=== PATIENT | male | born 1995 | race Hispanic/Latino ===

== ENCOUNTER 2018-03-25 03:11 | Inpatient (IN) | payer MEDICAID ==
[2018-03-25] MEDS ORDERED: Sodium Chloride 0.9% 1,000 ML IV STA ×2 (03:22→04:40)
--- NOTE | 2018-03-25 03:33 | ED PDOC ---
Arrival/HPI - General Chief Complaint: Substance Abuse Time Seen by Provider: 03/25/18 03:16 Historian: Patient, EMS, Police - History of Present Illness Narrative History of Present Illness (Text): 03/25/18 03:28 22 year old male, with no significant past medical history, presents to the emergency department for evaluation, status post heroin overdose. Patient was found apneic, unresponsive, and cyanotic. EMS administered Narcan and began chest compressions. Patient was successfully revived. In the emergency department, patient states he feels better but is having chest pain. Patient describes it as chest pressure. Patient denies any fevers, headache, dizziness, abdominal pain, nausea, vomiting, diarrhea, back pain, neck pain, urinary/bowel changes, or any other complaint. Time/Duration: Prior to Arrival Symptom Onset: Sudden Symptom Course: Improving Quality: Pressure (chest pressure) Context: Home Past Medical History - Provider Review Nursing Documentation Reviewed: Yes - Psychiatric Hx Substance Use: Yes Family/Social History - Physician Review Nursing Documentation Reviewed: Yes Family/Social History: No Known Family HX Smoking Status: Current Some Days Smoker Hx Alcohol Use: Yes Frequency of alcohol use: Few days per week Hx Substance Use: Yes Substance used: Heroin Allergies/Home Meds Allergies/Adverse Reactions: Allergies No Known Allergies Allergy (Verified 03/25/18 03:13) Home Medications: Home Meds Medication Instructions Recorded Confirmed RX: No Known Home Med 03/25/18 03/25/18 Review of Systems - Physician Review All systems were reviewed & negative as marked: Yes - Review of Systems Constitutional: absent: Fevers Cardiovascular: Chest Pain Gastrointestinal: absent: Abdominal Pain, Diarrhea, Nausea, Vomiting Genitourinary Male: absent: Urinary Output Changes Musculoskeletal: absent: Back Pain, Neck Pain Neurological: absent: Headache, Dizziness Physical Exam - Physical Exam Narrative Physical Exam (Text): 03/25/18 03:41 Gen: VS reviewed, alert, well developed, well nourished, nontoxic, mild distress. ENT: normal pharynx. Eye: EOMI, PERRL. Neck: no JVD, supple, no adenopathy. CV: tachycardic, regular rhythm, no rubs, no murmur, no gallops, S1, S2, pulses equal and strong. Pulm: faint coarse breath sounds, no wheeze, no rhonchi, no rales. Abd: soft, nontender, no guarding, no rebound, no rigidity, normal bowel sounds. Ext: no edema. Skin: good color, no rash, no cyanosis. Psych: responds appropriately to questions, normal affect. Neuro: oriented x 3, CN2-12 intact grossly, motor intact, sensation intact. Medical Decision Making ED Course and Treatment: 03/25/18 03:37 Impression: 22 year old male presents with chest pain, for evaluation status post heroin overdose. Plan: -- EKG -- Labs -- Chest X-ray -- O2 Nasal Cannula -- Reassess and disposition Progress Notes: 03/25/18 04:41 admit accepted by hospitalist via . patient to be admitted for heroin overdose (injects in right AC), received narcan and had chest compression prir to arrival. cxr appears consistent with aspiration pneumonia and patient empirically started on iv abx. patient to be screened for ICU admission. 03/25/18 04:46 - Critical Care Critical Care Minutes: 30 minutes - RAD Interpretation Radiology Orders: 03/25/18 03:22 CHEST PORTABLE [RAD] Stat - EKG Interpretation EKG Interpretation (Text): 03/25/18 03:13 EKG: Ordered, reviewed, and independently interpreted the EKG. Rate : 131 BPM Rhythm : Tachycardia Interpretation : Normal QRS, Normal [place], No acute ST or T wave abnormality. Comparison : No previous EKG for comparison. Interpreted by ED Physician: Yes Type: 12 lead EKG Comparison: No previous EKG avail. - Medication Orders Current Medication Orders: Sodium Chloride (Sodium Chloride 0.9%) 1,000 mls @ 999 mls/hr IV .Q1H1M STA Stop: 03/25/18 04:22 - Scribe Statement The provider has reviewed the documentation as recorded by the Tesfaye Longoria Provider Scribe Attestation: All medical record entries made by the Scribe were at my direction and personally dictated by me. I have reviewed the chart and agree that the record accurately reflects my personal performance of the history, physical exam, medical decision making, and the department course for this patient. I have also personally directed, reviewed, and agree with the discharge instructions and disposition. Disposition/Present on Arrival - Present on Arrival Any Indicators Present on Arrival: No History of DVT/PE: No History of Uncontrolled Diabetes: No Urinary Catheter: No History of Decub. Ulcer: No History Surgical Site Infection Following: None - Disposition Have Diagnosis and Disposition been Completed?: Yes Diagnosis: Heroin overdose Disposition: HOSPITALIZED Disposition Time: 04:44 Patient Plan: Admission, ICU Patient Problems: Current Active Problems Problem Status Onset Heroin overdose Acute Condition: FAIR
[2018-03-25 03:47] LABS: INR 1.03; PARTIAL THROMBOPLASTIN TIME 23.8 Seconds (25.1-36.5); PROTHROMBIN TIME 11.8 SECONDS (9.4-12.5)
[2018-03-25] MEDS ORDERED: Naloxone 0.4 mg/ml Inj (Adult) IVP STA (03:54)
[2018-03-25] MEDS ORDERED: levoFLOXacin 750 mg in D5W 150 ML BAG IVPB STA (04:13)
[2018-03-25 04:14] LABS: B-TYPE NATRIURETIC PEPTIDE 20.4 pg/mL (0-450); BASO # 0.01 K/mm3 (0.0-2.0); BASO % 0.1 % (0.0-3.0); EOS # 0.2 (0.0-0.7); EOS % 1.2 % (1.5-5.0); GRAN # 11.91 (1.4-6.5); GRAN % 89.3 % (50.0-68.0); HEMOGLOBIN 16.2 g/dL (14.0-18.0); LYMPH % 7.1 % (22.0-35.0); MEAN CELL VOLUME 88.6 fl (80.0-105.0); MEAN CORPUSCULAR HEMOGLOBIN 29.8 pg (25.0-35.0); MEAN CORPUSCULAR HGB CONC 33.7 g/dl (31.0-37.0); MEAN PLATELET VOLUME 10.2 fl (7.0-11.0); MONO # 0.3 (0.1-0.6); MONO % 2.3 % (1.0-6.0); RBC 5.43 10^6/uL (3.5-6.1); RED CELL DISTRIBUTION WIDTH 13.5 % (11.5-14.5); TROPONIN I 0.03 ng/mL; WHITE BLOOD COUNT 13.3 10^3/uL (4.5-11.0)
[2018-03-25] MEDS ORDERED: Clindamycin 600mg/50ml D5W 600 MG/50 ML VIAL IVPB STA (04:14)
[2018-03-25] MEDS ORDERED: Sodium Chloride 0.9% 500 ML IV STA ×2 (04:41→06:18)
[2018-03-25] MEDS ORDERED: Albuterol-Ipratrop 3 mg / 0.5 (3 ml) UD IH STA (05:16)
[2018-03-25 05:26] LABS: ALB/GLOB RATIO 1.3 (1.1-1.8); ALBUMIN 3.5 g/dL (3.0-4.8); ALT/SGPT 37 U/L (7-56); AST/SGOT 46 U/L (17-59); BLOOD UREA NITROGEN 7 mg/dL (7-21); CALCIUM 8.1 mg/dL (8.4-10.5); GFR NON-AFRICAN AMERICAN > 60
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
[2018-03-25] MEDS ORDERED: Albuterol-Ipratrop 3 mg / 0.5 (3 ml) UD IH PRN (05:58)
[2018-03-25 06:15] LABS: ARTERIAL BLOOD GAS HCO3 23.1 mmol/L (21-28); ARTERIAL BLOOD GAS O2 SAT 99.7 % (95-98); ARTERIAL BLOOD GAS PCO2 39 mm/Hg (35-45); ARTERIAL BLOOD GAS PH 7.38 (7.35-7.45); ARTERIAL BLOOD GAS TCO2 24.3 mmol.L (22-28)
[2018-03-25 06:18] LABS: VENOUS BLOOD GAS BASE EXCESS 0.5 mmol/L (0.0-2.0); VENOUS BLOOD GAS PO2 70 mm/Hg (30-55); VENOUS BLOOD PH 7.34 (7.32-7.43)
[2018-03-25] MEDS ORDERED: Sodium Chloride 0.9% 1,000 ML IV SCH (06:30)
[2018-03-25 07:08] LABS: URINE APPEARANCE CLEAR (CLEAR); URINE BILIRUBIN NEGATIVE (NEGATIVE); URINE BLOOD NEGATIVE (NEGATIVE); URINE COLOR YELLOW (YELLOW); URINE GLUCOSE (UA) >=1000 mg/dL (NEGATIVE); URINE LEUKOCYTE ESTERASE NEGATIVE Leu/uL (NEGATIVE); URINE PROTEIN TRACE mg/dL (<30 mg/dL); URINE UROBILINOGEN 0.2 E.U./dL (<1 E.U./dL)
[2018-03-25 07:35] LABS: URINE RBC 0 - 2 /hpf (0-2)
[2018-03-25 07:36] LABS: URINE BACTERIA MOD (NEG); URINE COARSE GRANULAR CAST TRACE /hpf (0-2)
[2018-03-25 07:49] LABS: BASO # 0.01 K/mm3 (0.0-2.0); BASO % 0.1 % (0.0-3.0); GRAN # 7.55 (1.4-6.5); GRAN % 90.9 % (50.0-68.0); LYMPH # 0.5 (1.2-3.4); LYMPH % 6.1 % (22.0-35.0); MEAN CELL VOLUME 87.2 fl (80.0-105.0); MEAN CORPUSCULAR HEMOGLOBIN 29.2 pg (25.0-35.0); MEAN CORPUSCULAR HGB CONC 33.5 g/dl (31.0-37.0); MEAN PLATELET VOLUME 9.2 fl (7.0-11.0); MONO # 0.2 (0.1-0.6); MONO % 2.9 % (1.0-6.0); PLATELET COUNT 178 10^3/uL (120.0-450.0); RBC 4.69 10^6/uL (3.5-6.1); RED CELL DISTRIBUTION WIDTH 13.5 % (11.5-14.5); VENOUS BLOOD GAS BASE EXCESS -1.3 mmol/L (0.0-2.0); VENOUS BLOOD GAS PO2 41 mm/Hg (30-55); VENOUS BLOOD PH 7.34 (7.32-7.43); WHITE BLOOD COUNT 8.3 10^3/uL (4.5-11.0)
[2018-03-25 07:51] VITALS: BMI 31.6
[2018-03-25 08:07] LABS: HEMOGLOBIN 13.7 g/dL (14.0-18.0)
[2018-03-25 08:08] LABS: ALB/GLOB RATIO 1.1 (1.1-1.8); ALBUMIN 2.7 g/dL (3.0-4.8); ALT/SGPT 41 U/L (7-56); AST/SGOT 33 U/L (17-59); BLOOD UREA NITROGEN 7 mg/dL (7-21); CALCIUM 7.2 mg/dL (8.4-10.5); GFR NON-AFRICAN AMERICAN > 60
[2018-03-25 08:25] LABS: BARBITURATES, UR NEGATIVE (NEGATIVE); BENZODIAZEPINES, UR NEGATIVE (NEGATIVE); OPIATES, UR POSITIVE (NEGATIVE); PHENCYCLIDINE, UR NEGATIVE (NEGATIVE)
[2018-03-25 08:38] LABS: BAND 3 % (0-2); EOSINOPHIL 1 % (0.0-3.0); LYMPHOCYTE 7 % (22.0-35.0); MONOCYTE 3 % (1.0-6.0); NEUTROPHIL 86 % (50.0-70.0)
[2018-03-25 08:39] LABS: PLATELET ESTIMATE NORMAL (NORMAL)
[2018-03-25 09:07] LABS: VENOUS BLOOD GAS BASE EXCESS -1.8 mmol/L (0.0-2.0); VENOUS BLOOD GAS PO2 42 mm/Hg (30-55); VENOUS BLOOD PH 7.32 (7.32-7.43)
--- NOTE | 2018-03-25 09:08 | RAD ---
Date of service: 03/25/2018 HISTORY: chf COMPARISON: No prior. FINDINGS: LUNGS: No active pulmonary disease. PLEURA: No significant pleural effusion identified, no pneumothorax apparent. CARDIOVASCULAR: No aortic atherosclerotic calcification present. Normal cardiac size. There is severe vascular congestion right greater than left OSSEOUS STRUCTURES: No significant abnormalities. VISUALIZED UPPER ABDOMEN: Normal. OTHER FINDINGS: None. IMPRESSION: Severe vascular congestion right greater than left
--- NOTE | 2018-03-25 09:37 | CT ---
Date of service: 03/25/2018 PROCEDURE: CT HEAD WITHOUT CONTRAST. HISTORY: s/p fall COMPARISON: None available. TECHNIQUE: Axial computed tomography images were obtained through the head/brain without intravenous contrast. Radiation dose: Total exam DLP = 907.54 mGy-cm. This CT exam was performed using one or more of the following dose reduction techniques: Automated exposure control, adjustment of the mA and/or kV according to patient size, and/or use of iterative reconstruction technique. FINDINGS: HEMORRHAGE: No intracranial hemorrhage. BRAIN: No mass effect or edema. No atrophy or chronic microvascular ischemic changes. VENTRICLES: Unremarkable. No hydrocephalus. CALVARIUM: Unremarkable. PARANASAL SINUSES: Unremarkable as visualized. No significant inflammatory changes. MASTOID AIR CELLS: Unremarkable as visualized. No inflammatory changes. OTHER FINDINGS: None. IMPRESSION: Normal CT of the Head.
--- NOTE | 2018-03-25 11:09 | PCM.SEPTIC ---
<Michel Gupta - Last Filed: 03/25/18 12:13> Sepsis Progress Note - Reassessment Type Date of Evaluation: 03/25/18 Time of Evaluation: 11:00 Reassessment Type: Non-invasive reassessment - Non Invasive Reassessment Were the most recent vital sign reviewed: Yes Vital Sign (Latest): Temp Pulse Resp BP Pulse Ox 98.1 F 111 H 20 120/84 100 03/25/18 03:20 03/25/18 07:51 03/25/18 09:34 03/25/18 07:05 03/25/18 07:05 Cardiovascular: Yes: Tachycardia (still tachy in low 100s, monitored in ICU) Respiratory: Yes: Normal Breath Sounds. No: Accessory Muscle Use, Respiratory Distress Capillary Refill: Normal (Less than 2 sec) Pulses: Normal Radial, Normal Dorsalis Pedis, Normal Posterior Tibialis Skin: Warm, Dry <Mark Marina - Last Filed: 03/26/18 14:43> Sepsis Progress Note - Non Invasive Reassessment Vital Sign (Latest): Temp Pulse Resp BP Pulse Ox 98.5 F 103 H 20 104/73 92 L 03/26/18 12:00 03/26/18 12:00 03/26/18 12:00 03/26/18 12:00 03/26/18 06:00 Attending/Attestation - Attestation I have personally seen and examined this patient.: Yes I have fully participated in the care of the patient.: Yes I have reviewed all pertinent clinical information, including history, physical exam and plan: Yes
--- NOTE | 2018-03-25 13:32 | CARD ---
APPROVED REPORT Date of service: 03/25/2018 EKG Measurement Heart [id number] <Conclusion> Sinus tachycardia Rightward axis Borderline ECG
--- NOTE | 2018-03-25 13:36 | CP.PCM.PN ---
<Keith Norwood - Last Filed: 03/25/18 13:48> Subjective - Date & Time of Evaluation Date of Evaluation: 03/25/18 Time of Evaluation: 07:00 - Subjective Subjective: Pt seen and examined this morning. Pt reports "experimenting with heroin" yesterday. Pt denies chest pain, SOB or any new complaints. Objective - Vital Signs/Intake and Output Vital Signs (last 24 hours): Temp Pulse Resp BP Pulse Ox 98.1 F 111 H 28 H 120/84 100 03/25/18 03:20 03/25/18 07:51 03/25/18 11:15 03/25/18 07:05 03/25/18 07:05 - Medications Medications: Current Medications Albuterol/Ipratropium (Duoneb 3 Mg/0.5 Mg (3 Ml) Ud) 3 ml IH Q2H PRN PRN Reason: Shortness of Breath Heparin Sodium (Porcine) (Heparin) 5,000 units SC Q12 MICHAEL; Protocol Last Admin: 03/25/18 10:26 Dose: 5,000 units Clindamycin Phosphate (Cleocin) 600 mg in 50 mls @ 50 mls/hr IVPB Q8H MICHAEL; Protocol Sodium Chloride (Sodium Chloride 0.9%) 1,000 mls @ 100 mls/hr IV .Q10H MICHAEL Last Admin: 03/25/18 08:07 Dose: 100 mls/hr Levofloxacin/Dextrose (Levaquin 750mg) 750 mg in 150 mls @ 100 mls/hr IVPB 0600 MICHAEL; Protocol Ondansetron HCl (Zofran Inj) 2 mg IVP Q8 PRN PRN Reason: Nausea/Vomiting - Labs Labs: 03/25/18 07:40 03/25/18 07:40 PT 11.8 SECONDS (9.4-12.5) 03/25/18 03:26 INR 1.03 03/25/18 03:26 APTT 23.8 Seconds (25.1-36.5) L 03/25/18 03:26 - Constitutional Appears: Non-toxic, No Acute Distress - Head Exam Head Exam: ATRAUMATIC, NORMAL INSPECTION, NORMOCEPHALIC - Eye Exam Eye Exam: EOMI - ENT Exam ENT Exam: Mucous Membranes Moist - Neck Exam Neck Exam: Full ROM - Respiratory Exam Respiratory Exam: Clear to Ausculation Bilateral, NORMAL BREATHING PATTERN. absent: Accessory Muscle Use, Rhonchi, Wheezes, Respiratory Distress, Stridor - Cardiovascular Exam Cardiovascular Exam: RRR, +S1, +S2. absent: Diastolic murmur, Murmur - GI/Abdominal Exam GI & Abdominal Exam: Soft, Normal Bowel Sounds. absent: Rigid, Tenderness - Extremities Exam Extremities Exam: Full ROM, Pedal Edema. absent: Tenderness - Neurological Exam Neurological Exam: Alert, Awake, Oriented x3 - Psychiatric Exam Psychiatric exam: Normal Affect, Normal Mood - Skin Skin Exam: Dry, Intact, Normal Color, Warm Assessment and Plan - Assessment and Plan (Free Text) Assessment: This is a 22 year old male with no PMH presenting to ED after heroin overdose s/p chest compressions in field. Will be monitored in the ICU for hypotension and concern for aspiration pneumonia. Plan: Neuro - maintain normothermia - AAO x3, moving extremities spontaneously past midline - swallow eval pending - CT head pending, s/p fall Cardio - s/p chest compressions in field for 3 minutes - maintain MAP>65 - Pt currently normotensive - will monitor vitals including HR and BP closely - follow up ECHO - cardio consulted Lungs - SaO2 >90% - continue supplementary O2 via NC - duonebs continue PRN - CXR is suspicious for aspiration pneumonia vs non cardiogenic pulmonary edema Renal - maintain euvolemia - avoid nephrotoxic agents - replace electrolytes as needed - ABG - UDS POSITIVE for cannabinoids and opiates Heme - Hgb 13.7 Endo - maintain euglycemia - hyperglycemic on presentation, likely stress induced, f/u labs ID - WBC is mildly elevated, currently afebrile - blood culture, urine culture and U/A pending - continue clindamycin and levfloxacin. - Code sepsis called in ED (elevated lactate, WBC, HR) GI - regular diet - zofran prn Pt seen, examined, assessment, and plan discussed with Dr Marina. Keith Norwood PGY1 Internal Medicine Resident <Mark Marina - Last Filed: 03/26/18 14:43> Objective - Vital Signs/Intake and Output Vital Signs (last 24 hours): Temp Pulse Resp BP Pulse Ox 98.5 F 103 H 20 104/73 92 L 03/26/18 12:00 03/26/18 12:00 03/26/18 12:00 03/26/18 12:00 03/26/18 06:00 Intake and Output: 03/26/18 03/26/18 06:59 18:59 Intake Total 540 Balance 540 - Labs Labs: 03/26/18 07:15 03/26/18 07:15 PT 11.8 SECONDS (9.4-12.5) 03/25/18 03:26 INR 1.03 03/25/18 03:26 APTT 23.8 Seconds (25.1-36.5) L 03/25/18 03:26 Attending/Attestation - Attestation I have personally seen and examined this patient.: Yes I have fully participated in the care of the patient.: Yes I have reviewed all pertinent clinical information, including history, physical exam and plan: Yes Notes (Text): 03/26/18 14:41 22 year old male with no PMH presenting to ED after heroin overdose s/p chest compressions in field CT chest is negative for Pulmonary embolism, likely has non cardiogenic Pulmonary edema to Narcotic. Patient troponin is elevated, we will get 2D Echo and cardiology consult. Patient is alert,awake and oriented and is on room air. Issue of ongoing drug abuse was discussed in detail with him
[2018-03-25] MEDS: Clindamycin 600mg/50ml D5W 600 MG/50 ML VIAL IVPB SCH ×2 (14:39→22:08)
--- NOTE | 2018-03-25 16:32 | CARD ---
APPROVED REPORT Date of service: 03/25/2018 EXAM: Two-dimensional and M-mode echocardiogram with Doppler and color Doppler. INDICATION DRUG OVERDOSE 2D DIMENSIONS Left Atrium (2D)4.0 (1.6-4.0cm)IVSd1.2 (0.7-1.1cm) LVDd5.3 (3.9-5.9cm)PWd1.2 (0.7-1.1cm) LVDs3.7 (2.5-4.0cm)FS (%) 29.9 % LVEF (%)56.7 (>50%) M-Mode DIMENSIONS Aortic Root2.70 (2.2-3.7cm)Aortic Cusp Exc.2.00 (1.5-2.0cm) Aortic Valve AoV Peak Vciwxpda531.0cm/Brenda Peak GR.12mmHg Mitral Valve E/A ratio0.0 TDI E/Lateral E'0.0E/Medial E'0.0 Tricuspid Valve TR Peak [id number] [id number] Peak Gr.17mmHg [id number] LEFT VENTRICLE The left ventricle is normal size. There is normal left ventricular wall thickness. The left ventricular function is normal. The left ventricular ejection fraction is within the normal range. There is normal LV segmental wall motion. The left ventricular diastolic function is normal. RIGHT VENTRICLE The right ventricle is normal size. There is normal right ventricular wall thickness. The right ventricular systolic function is normal. ATRIA The left atrium size is normal. The right atrium size is normal. AORTIC VALVE The aortic valve is not well visualized. No aortic regurgitation is present. There is no aortic valvular stenosis. MITRAL VALVE The mitral valve is normal in structure. There is no mitral valve regurgitation noted. There is no mitral valve stenosis. TRICUSPID VALVE The tricuspid valve is normal in structure. There is trace tricuspid regurgitation. PULMONIC VALVE The pulmonary valve is normal in structure. There is no pulmonic valvular regurgitation. GREAT VESSELS The aortic root is normal in size. PERICARDIAL EFFUSION There is a trace pericardial effusion. <Conclusion> The left ventricle is normal size. There is normal left ventricular wall thickness. The left ventricular function is normal. The left ventricular ejection fraction is within the normal range. There is normal LV segmental wall motion. The left ventricular diastolic function is normal.
--- NOTE | 2018-03-25 16:34 | CP.CCUPN ---
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 mls/hr 03/26/18 06:00 Levaquin 750mg IVPB 0600 MICHAEL Protocol Metoprolol Tartrate 12.5 mg 03/25/18 17:00 Lopressor PO BRKDIN MICHAEL Ondansetron HCl 2 mg 03/25/18 06:02 Zofran Inj IVP Q8 PRN Nausea/Vomiting - Patient Studies Lab Studies: Lab Studies 03/25/18 03/25/18 03/25/18 Range/Units 16:50 10:30 09:00 WBC (4.5-11.0) 10^3/uL RBC (3.5-6.1) 10^6/uL Hgb (14.0-18.0) g/dL Hct (42.0-52.0) % MCV (80.0-105.0) fl MCH (25.0-35.0) pg MCHC (31.0-37.0) g/dl RDW (11.5-14.5) % Plt Count (120.0-450.0) 10^3/uL MPV (7.0-11.0) fl Gran % (50.0-68.0) % Lymph % (Auto) (22.0-35.0) % [place] % (Auto) (1.0-6.0) % Eos % (Auto) (1.5-5.0) % Baso % (Auto) (0.0-3.0) % Gran # (1.4-6.5) Lymph # (Auto) (1.2-3.4) [place] # (Auto) (0.1-0.6) Eos # (Auto) (0.0-0.7) Baso # (Auto) (0.0-2.0) K/mm3 Neutrophils % (Manual) (50.0-70.0) % Band Neutrophils % (0-2) % Lymphocytes % (Manual) (22.0-35.0) % Monocytes % (Manual) (1.0-6.0) % Eosinophils % (Manual) (0.0-3.0) % Platelet Evaluation (NORMAL) PT (9.4-12.5) SECONDS INR APTT (25.1-36.5) Seconds D-Dimer, Quantitative 582 H (0-243) ng/mlDDU pCO2 (35-45) mm/Hg pO2 42 (30-55) mm/Hg HCO3 (21-28) mmol/L ABG pH (7.35-7.45) ABG Total CO2 (22-28) mmol.L ABG O2 Saturation (95-98) % ABG Base Excess (-2.0-3.0) mmol/L ABG Potassium (3.6-5.2) mmol/L VBG pH 7.32 (7.32-7.43) VBG pCO2 48.0 (40-60) VBG HCO3 24.7 (21-28) mmol/l VBG Total CO2 26.2 (22-28) mmol.L VBG O2 Sat (Calc) 80.0 H (40-65) % VBG Base Excess -1.8 L (0.0-2.0) mmol/L VBG Potassium 4.4 (3.6-5.2) mmol/L Glucose 98 (75-110) mg/dl Lactate 1.7 (0.7-2.1) mmol/L FiO2 21.0 % Sodium 137.0 (132-148) mmol/L Potassium (3.6-5.0) mmol/L Chloride 105.0 (98-107) mmol/L Carbon Dioxide (21-33) mmol/L Anion Gap (10-20) BUN (7-21) mg/dL Creatinine (0.8-1.5) mg/dl Est GFR ( Amer) Est GFR (Non-Af Amer) Random Glucose (70-110) mg/dL Calcium (8.4-10.5) mg/dL Phosphorus (2.5-4.5) mg/dL Magnesium (1.7-2.2) mg/dL Total Bilirubin (0.2-1.3) mg/dL AST (17-59) U/L ALT (7-56) U/L Alkaline Phosphatase (38-126) U/L Total Creatine Kinase (35-230) U/L CK-MB (CK-2) (0.0-3.6) ng/mL CK-MB (CK-2) % Troponin I 0.20 H* D ng/mL NT-Pro-B Natriuret Pep (0-450) pg/mL Total Protein (5.8-8.3) g/dL Albumin (3.0-4.8) g/dL Globulin gm/dL Albumin/Globulin Ratio (1.1-1.8) Arterial Blood Potassium (3.6-5.2) mmol/L Venous Blood Potassium 4.4 (3.6-5.2) mmol/L Urine Color (YELLOW) Urine Appearance (CLEAR) Urine pH (4.7-8.0) Ur Specific [place] (1.005-1.035) Urine Protein (<30 mg/dL) mg/dL Urine Glucose (UA) (NEGATIVE) mg/dL Urine Ketones (NEGATIVE) mg/dL Urine Blood (NEGATIVE) Urine Nitrate (NEGATIVE) Urine Bilirubin (NEGATIVE) Urine Urobilinogen (<1 E.U./dL) E.U./dL Ur Leukocyte Esterase (NEGATIVE) [place]/uL Urine RBC (0-2) /hpf Urine WBC (0-6) /hpf Ur Epithelial Cells (0-5) /hpf Urine Bacteria (NEG) Coarse Granular Casts (0-2) /hpf Urine Opiates Screen (NEGATIVE) Urine Methadone Screen (NEGATIVE) Ur Barbiturates Screen (NEGATIVE) Ur Phencyclidine Scrn (NEGATIVE) Ur Amphetamines Screen (NEGATIVE) U Benzodiazepines Scrn (NEGATIVE) U Oth Cocaine Metabols (NEGATIVE) U Cannabinoids Screen (NEGATIVE) 03/25/18 03/25/18 03/25/18 Range/Units 07:40 07:40 07:40 WBC 8.3 D (4.5-11.0) 10^3/uL RBC 4.69 (3.5-6.1) 10^6/uL Hgb 13.7 L D (14.0-18.0) g/dL Hct 40.9 L (42.0-52.0) % MCV 87.2 (80.0-105.0) fl MCH 29.2 (25.0-35.0) pg MCHC 33.5 (31.0-37.0) g/dl RDW 13.5 (11.5-14.5) % Plt Count 178 (120.0-450.0) 10^3/uL MPV 9.2 (7.0-11.0) fl Gran % 90.9 H (50.0-68.0) % Lymph % (Auto) 6.1 L (22.0-35.0) % [place] % (Auto) 2.9 (1.0-6.0) % Eos % (Auto) 0.0 L (1.5-5.0) % Baso % (Auto) 0.1 (0.0-3.0) % Gran # 7.55 H (1.4-6.5) Lymph # (Auto) 0.5 L (1.2-3.4) [place] # (Auto) 0.2 (0.1-0.6) Eos # (Auto) 0.0 (0.0-0.7) Baso # (Auto) 0.01 (0.0-2.0) K/mm3 Neutrophils % (Manual) 86 H (50.0-70.0) % Band Neutrophils % 3 H (0-2) % Lymphocytes % (Manual) 7 L (22.0-35.0) % Monocytes % (Manual) 3 (1.0-6.0) % Eosinophils % (Manual) 1 (0.0-3.0) % Platelet Evaluation Normal (NORMAL) PT (9.4-12.5) SECONDS INR APTT (25.1-36.5) Seconds D-Dimer, Quantitative (0-243) ng/mlDDU pCO2 (35-45) mm/Hg pO2 41 (30-55) mm/Hg HCO3 (21-28) mmol/L ABG pH (7.35-7.45) ABG Total CO2 (22-28) mmol.L ABG O2 Saturation (95-98) % ABG Base Excess (-2.0-3.0) mmol/L ABG Potassium (3.6-5.2) mmol/L VBG pH 7.34 (7.32-7.43) VBG pCO2 46.0 (40-60) VBG HCO3 24.8 (21-28) mmol/l VBG Total CO2 26.2 (22-28) mmol.L VBG O2 Sat (Calc) 80.6 H (40-65) % VBG Base Excess -1.3 L (0.0-2.0) mmol/L VBG Potassium 3.8 (3.6-5.2) mmol/L Glucose 87 (75-110) mg/dl Lactate 1.5 (0.7-2.1) mmol/L FiO2 21.0 % Sodium 138.0 139 (132-148) mmol/L Potassium 3.9 (3.6-5.0) mmol/L Chloride 106.0 109 H (98-107) mmol/L Carbon Dioxide 25 (21-33) mmol/L Anion Gap 9 L (10-20) BUN 7 (7-21) mg/dL Creatinine 1.0 (0.8-1.5) mg/dl Est GFR ( Amer) > 60 Est GFR (Non-Af Amer) > 60 Random Glucose 88 (70-110) mg/dL Calcium 7.2 L (8.4-10.5) mg/dL Phosphorus 2.3 L (2.5-4.5) mg/dL Magnesium 1.6 L (1.7-2.2) mg/dL Total Bilirubin 0.2 (0.2-1.3) mg/dL AST 33 (17-59) U/L ALT 41 (7-56) U/L Alkaline Phosphatase 47 (38-126) U/L Total Creatine Kinase (35-230) U/L CK-MB (CK-2) (0.0-3.6) ng/mL CK-MB (CK-2) % Troponin I ng/mL NT-Pro-B Natriuret Pep (0-450) pg/mL Total Protein 5.2 L (5.8-8.3) g/dL Albumin 2.7 L (3.0-4.8) g/dL Globulin 2.4 gm/dL Albumin/Globulin Ratio 1.1 (1.1-1.8) Arterial Blood Potassium (3.6-5.2) mmol/L Venous Blood Potassium 3.8 (3.6-5.2) mmol/L Urine Color (YELLOW) Urine Appearance (CLEAR) Urine pH (4.7-8.0) Ur Specific [place] (1.005-1.035) Urine Protein (<30 mg/dL) mg/dL Urine Glucose (UA) (NEGATIVE) mg/dL Urine Ketones (NEGATIVE) mg/dL Urine Blood (NEGATIVE) Urine Nitrate (NEGATIVE) Urine Bilirubin (NEGATIVE) Urine Urobilinogen (<1 E.U./dL) E.U./dL Ur Leukocyte Esterase (NEGATIVE) [place]/uL Urine RBC (0-2) /hpf Urine WBC (0-6) /hpf Ur Epithelial Cells (0-5) /hpf Urine Bacteria (NEG) Coarse Granular Casts (0-2) /hpf Urine Opiates Screen (NEGATIVE) Urine Methadone Screen (NEGATIVE) Ur Barbiturates Screen (NEGATIVE) Ur Phencyclidine Scrn (NEGATIVE) Ur Amphetamines Screen (NEGATIVE) U Benzodiazepines Scrn (NEGATIVE) U Oth Cocaine Metabols (NEGATIVE) U Cannabinoids Screen (NEGATIVE) 03/25/18 03/25/18 03/25/18 Range/Units 06:44 06:44 05:50 WBC (4.5-11.0) 10^3/uL RBC (3.5-6.1) 10^6/uL Hgb (14.0-18.0) g/dL Hct (42.0-52.0) % MCV (80.0-105.0) fl MCH (25.0-35.0) pg MCHC (31.0-37.0) g/dl RDW (11.5-14.5) % Plt Count (120.0-450.0) 10^3/uL MPV (7.0-11.0) fl Gran % (50.0-68.0) % Lymph % (Auto) (22.0-35.0) % [place] % (Auto) (1.0-6.0) % Eos % (Auto) (1.5-5.0) % Baso % (Auto) (0.0-3.0) % Gran # (1.4-6.5) Lymph # (Auto) (1.2-3.4) [place] # (Auto) (0.1-0.6) Eos # (Auto) (0.0-0.7) Baso # (Auto) (0.0-2.0) K/mm3 Neutrophils % (Manual) (50.0-70.0) % Band Neutrophils % (0-2) % Lymphocytes % (Manual) (22.0-35.0) % Monocytes % (Manual) (1.0-6.0) % Eosinophils % (Manual) (0.0-3.0) % Platelet Evaluation (NORMAL) PT (9.4-12.5) SECONDS INR APTT (25.1-36.5) Seconds D-Dimer, Quantitative (0-243) ng/mlDDU pCO2 39 (35-45) mm/Hg pO2 163.0 H (30-55) mm/Hg HCO3 23.1 (21-28) mmol/L ABG pH 7.38 (7.35-7.45) ABG Total CO2 24.3 (22-28) mmol.L ABG O2 Saturation 99.7 H (95-98) % ABG Base Excess -1.8 (-2.0-3.0) mmol/L ABG Potassium 3.1 L (3.6-5.2) mmol/L VBG pH (7.32-7.43) VBG pCO2 (40-60) VBG HCO3 (21-28) mmol/l VBG Total CO2 (22-28) mmol.L VBG O2 Sat (Calc) (40-65) % VBG Base Excess (0.0-2.0) mmol/L VBG Potassium (3.6-5.2) mmol/L Glucose 90 (75-110) mg/dl Lactate 1.4 (0.7-2.1) mmol/L FiO2 100.0 % Sodium 139.0 (132-148) mmol/L Potassium (3.6-5.0) mmol/L Chloride 110.0 H (98-107) mmol/L Carbon Dioxide (21-33) mmol/L Anion Gap (10-20) BUN (7-21) mg/dL Creatinine (0.8-1.5) mg/dl Est GFR ( Amer) Est GFR (Non-Af Amer) Random Glucose (70-110) mg/dL Calcium (8.4-10.5) mg/dL Phosphorus (2.5-4.5) mg/dL Magnesium (1.7-2.2) mg/dL Total Bilirubin (0.2-1.3) mg/dL AST (17-59) U/L ALT (7-56) U/L Alkaline Phosphatase (38-126) U/L Total Creatine Kinase (35-230) U/L CK-MB (CK-2) (0.0-3.6) ng/mL CK-MB (CK-2) % Troponin I ng/mL NT-Pro-B Natriuret Pep (0-450) pg/mL Total Protein (5.8-8.3) g/dL Albumin (3.0-4.8) g/dL Globulin gm/dL Albumin/Globulin Ratio (1.1-1.8) Arterial Blood Potassium 3.1 L (3.6-5.2) mmol/L Venous Blood Potassium (3.6-5.2) mmol/L Urine Color Yellow (YELLOW) Urine Appearance Clear (CLEAR) Urine pH 6.0 (4.7-8.0) Ur Specific [place] 1.020 (1.005-1.035) Urine Protein Trace H (<30 mg/dL) mg/dL Urine Glucose (UA) >=1000 (NEGATIVE) mg/dL Urine Ketones Negative (NEGATIVE) mg/dL Urine Blood Negative (NEGATIVE) Urine Nitrate Negative (NEGATIVE) Urine Bilirubin Negative (NEGATIVE) Urine Urobilinogen 0.2 (<1 E.U./dL) E.U./dL Ur Leukocyte Esterase Negative (NEGATIVE) [place]/uL Urine RBC 0 - 2 (0-2) /hpf Urine WBC 1 - 3 (0-6) /hpf Ur Epithelial Cells None (0-5) /hpf Urine Bacteria Mod (NEG) Coarse Granular Casts Trace H (0-2) /hpf Urine Opiates Screen Positive H (NEGATIVE) Urine Methadone Screen Negative (NEGATIVE) Ur Barbiturates Screen Negative (NEGATIVE) Ur Phencyclidine Scrn Negative (NEGATIVE) Ur Amphetamines Screen Negative (NEGATIVE) U Benzodiazepines Scrn Negative (NEGATIVE) U Oth Cocaine Metabols Negative (NEGATIVE) U Cannabinoids Screen Positive H (NEGATIVE) 03/25/18 03/25/18 03/25/18 Range/Units 04:45 03:26 03:26 WBC 13.3 H (4.5-11.0) 10^3/uL RBC 5.43 (3.5-6.1) 10^6/uL Hgb 16.2 (14.0-18.0) g/dL Hct 48.1 (42.0-52.0) % MCV 88.6 (80.0-105.0) fl MCH 29.8 (25.0-35.0) pg MCHC 33.7 (31.0-37.0) g/dl RDW 13.5 (11.5-14.5) % Plt Count 201 (120.0-450.0) 10^3/uL MPV 10.2 (7.0-11.0) fl Gran % 89.3 H (50.0-68.0) % Lymph % (Auto) 7.1 L (22.0-35.0) % [place] % (Auto) 2.3 (1.0-6.0) % Eos % (Auto) 1.2 L (1.5-5.0) % Baso % (Auto) 0.1 (0.0-3.0) % Gran # 11.91 H (1.4-6.5) Lymph # (Auto) 1.0 L (1.2-3.4) [place] # (Auto) 0.3 (0.1-0.6) Eos # (Auto) 0.2 (0.0-0.7) Baso # (Auto) 0.01 (0.0-2.0) K/mm3 Neutrophils % (Manual) (50.0-70.0) % Band Neutrophils % (0-2) % Lymphocytes % (Manual) (22.0-35.0) % Monocytes % (Manual) (1.0-6.0) % Eosinophils % (Manual) (0.0-3.0) % Platelet Evaluation (NORMAL) PT 11.8 (9.4-12.5) SECONDS INR 1.03 APTT 23.8 L (25.1-36.5) Seconds D-Dimer, Quantitative (0-243) ng/mlDDU pCO2 (35-45) mm/Hg pO2 70 H (30-55) mm/Hg HCO3 (21-28) mmol/L ABG pH (7.35-7.45) ABG Total CO2 (22-28) mmol.L ABG O2 Saturation (95-98) % ABG Base Excess (-2.0-3.0) mmol/L ABG Potassium (3.6-5.2) mmol/L VBG pH 7.34 (7.32-7.43) VBG pCO2 50.0 (40-60) VBG HCO3 27.0 (21-28) mmol/l VBG Total CO2 28.5 H (22-28) mmol.L VBG O2 Sat (Calc) 96.3 H (40-65) % VBG Base Excess 0.5 (0.0-2.0) mmol/L VBG Potassium 3.7 (3.6-5.2) mmol/L Glucose 146 H (75-110) mg/dl Lactate 2.6 H (0.7-2.1) mmol/L FiO2 21.0 % Sodium 138.0 (132-148) mmol/L Potassium (3.6-5.0) mmol/L Chloride 103.0 (98-107) mmol/L Carbon Dioxide (21-33) mmol/L Anion Gap (10-20) BUN (7-21) mg/dL Creatinine (0.8-1.5) mg/dl Est GFR ( Amer) Est GFR (Non-Af Amer) Random Glucose (70-110) mg/dL Calcium (8.4-10.5) mg/dL Phosphorus (2.5-4.5) mg/dL Magnesium (1.7-2.2) mg/dL Total Bilirubin (0.2-1.3) mg/dL AST (17-59) U/L ALT (7-56) U/L Alkaline Phosphatase (38-126) U/L Total Creatine Kinase (35-230) U/L CK-MB (CK-2) (0.0-3.6) ng/mL CK-MB (CK-2) % Troponin I ng/mL NT-Pro-B Natriuret Pep (0-450) pg/mL Total Protein (5.8-8.3) g/dL Albumin (3.0-4.8) g/dL Globulin gm/dL Albumin/Globulin Ratio (1.1-1.8) Arterial Blood Potassium (3.6-5.2) mmol/L Venous Blood Potassium 3.7 (3.6-5.2) mmol/L Urine Color (YELLOW) Urine Appearance (CLEAR) Urine pH (4.7-8.0) Ur Specific [place] (1.005-1.035) Urine Protein (<30 mg/dL) mg/dL Urine Glucose (UA) (NEGATIVE) mg/dL Urine Ketones (NEGATIVE) mg/dL Urine Blood (NEGATIVE) Urine Nitrate (NEGATIVE) Urine Bilirubin (NEGATIVE) Urine Urobilinogen (<1 E.U./dL) E.U./dL Ur Leukocyte Esterase (NEGATIVE) [place]/uL Urine RBC (0-2) /hpf Urine WBC (0-6) /hpf Ur Epithelial Cells (0-5) /hpf Urine Bacteria (NEG) Coarse Granular Casts (0-2) /hpf Urine Opiates Screen (NEGATIVE) Urine Methadone Screen (NEGATIVE) Ur Barbiturates Screen (NEGATIVE) Ur Phencyclidine Scrn (NEGATIVE) Ur Amphetamines Screen (NEGATIVE) U Benzodiazepines Scrn (NEGATIVE) U Oth Cocaine Metabols (NEGATIVE) U Cannabinoids Screen (NEGATIVE) 03/25/18 Range/Units 03:26 WBC (4.5-11.0) 10^3/uL RBC (3.5-6.1) 10^6/uL Hgb (14.0-18.0) g/dL Hct (42.0-52.0) % MCV (80.0-105.0) fl MCH (25.0-35.0) pg MCHC (31.0-37.0) g/dl RDW (11.5-14.5) % Plt Count (120.0-450.0) 10^3/uL MPV (7.0-11.0) fl Gran % (50.0-68.0) % Lymph % (Auto) (22.0-35.0) % [place] % (Auto) (1.0-6.0) % Eos % (Auto) (1.5-5.0) % Baso % (Auto) (0.0-3.0) % Gran # (1.4-6.5) Lymph # (Auto) (1.2-3.4) [place] # (Auto) (0.1-0.6) Eos # (Auto) (0.0-0.7) Baso # (Auto) (0.0-2.0) K/mm3 Neutrophils % (Manual) (50.0-70.0) % Band Neutrophils % (0-2) % Lymphocytes % (Manual) (22.0-35.0) % Monocytes % (Manual) (1.0-6.0) % Eosinophils % (Manual) (0.0-3.0) % Platelet Evaluation (NORMAL) PT (9.4-12.5) SECONDS INR APTT (25.1-36.5) Seconds D-Dimer, Quantitative (0-243) ng/mlDDU pCO2 (35-45) mm/Hg pO2 (30-55) mm/Hg HCO3 (21-28) mmol/L ABG pH (7.35-7.45) ABG Total CO2 (22-28) mmol.L ABG O2 Saturation (95-98) % ABG Base Excess (-2.0-3.0) mmol/L ABG Potassium (3.6-5.2) mmol/L VBG pH (7.32-7.43) VBG pCO2 (40-60) VBG HCO3 (21-28) mmol/l VBG Total CO2 (22-28) mmol.L VBG O2 Sat (Calc) (40-65) % VBG Base Excess (0.0-2.0) mmol/L VBG Potassium (3.6-5.2) mmol/L Glucose (75-110) mg/dl Lactate (0.7-2.1) mmol/L FiO2 % Sodium 137 (132-148) mmol/L Potassium 3.8 (3.6-5.0) mmol/L Chloride 99 (98-107) mmol/L Carbon Dioxide 27 (21-33) mmol/L Anion Gap 15 (10-20) BUN 7 (7-21) mg/dL Creatinine 1.4 (0.8-1.5) mg/dl Est GFR ( Amer) > 60 Est GFR (Non-Af Amer) > 60 Random Glucose 311 H* (70-110) mg/dL Calcium 8.1 L (8.4-10.5) mg/dL Phosphorus (2.5-4.5) mg/dL Magnesium (1.7-2.2) mg/dL Total Bilirubin 0.3 (0.2-1.3) mg/dL AST 46 (17-59) U/L ALT 37 (7-56) U/L Alkaline Phosphatase 54 (38-126) U/L Total Creatine Kinase 300 H (35-230) U/L CK-MB (CK-2) 1.0 (0.0-3.6) ng/mL CK-MB (CK-2) % Cancelled Troponin I 0.03 ng/mL NT-Pro-B Natriuret Pep 20.4 (0-450) pg/mL Total Protein 6.2 (5.8-8.3) g/dL Albumin 3.5 (3.0-4.8) g/dL Globulin 2.7 gm/dL Albumin/Globulin Ratio 1.3 (1.1-1.8) Arterial Blood Potassium (3.6-5.2) mmol/L Venous Blood Potassium (3.6-5.2) mmol/L Urine Color (YELLOW) Urine Appearance (CLEAR) Urine pH (4.7-8.0) Ur Specific [place] (1.005-1.035) Urine Protein (<30 mg/dL) mg/dL Urine Glucose (UA) (NEGATIVE) mg/dL Urine Ketones (NEGATIVE) mg/dL Urine Blood (NEGATIVE) Urine Nitrate (NEGATIVE) Urine Bilirubin (NEGATIVE) Urine Urobilinogen (<1 E.U./dL) E.U./dL Ur Leukocyte Esterase (NEGATIVE) [place]/uL Urine RBC (0-2) /hpf Urine WBC (0-6) /hpf Ur Epithelial Cells (0-5) /hpf Urine Bacteria (NEG) Coarse Granular Casts (0-2) /hpf Urine Opiates Screen (NEGATIVE) Urine Methadone Screen (NEGATIVE) Ur Barbiturates Screen (NEGATIVE) Ur Phencyclidine Scrn (NEGATIVE) Ur Amphetamines Screen (NEGATIVE) U Benzodiazepines Scrn (NEGATIVE) U Oth Cocaine Metabols (NEGATIVE) U Cannabinoids Screen (NEGATIVE) Laboratory Results - last 24 hr 03/25/18 03/25/18 03/25/18 03:26 03:26 03:26 WBC 13.3 H RBC 5.43 Hgb 16.2 Hct 48.1 MCV 88.6 MCH 29.8 MCHC 33.7 RDW 13.5 Plt Count 201 MPV 10.2 Gran % 89.3 H Lymph % (Auto) 7.1 L [place] % (Auto) 2.3 Eos % (Auto) 1.2 L Baso % (Auto) 0.1 Gran # 11.91 H Lymph # (Auto) 1.0 L [place] # (Auto) 0.3 Eos # (Auto) 0.2 Baso # (Auto) 0.01 Neutrophils % (Manual) Band Neutrophils % Lymphocytes % (Manual) Monocytes % (Manual) Eosinophils % (Manual) Platelet Evaluation PT 11.8 INR 1.03 APTT 23.8 L D-Dimer, Quantitative pCO2 pO2 HCO3 ABG pH ABG Total CO2 ABG O2 Saturation ABG Base Excess ABG Potassium VBG pH VBG pCO2 VBG HCO3 VBG Total CO2 VBG O2 Sat (Calc) VBG Base Excess VBG Potassium Glucose Lactate FiO2 Sodium 137 Potassium 3.8 Chloride 99 Carbon Dioxide 27 Anion Gap 15 BUN 7 Creatinine 1.4 Est GFR ( Amer) > 60 Est GFR (Non-Af Amer) > 60 Random Glucose 311 H* Calcium 8.1 L Phosphorus Magnesium Total Bilirubin 0.3 AST 46 ALT 37 Alkaline Phosphatase 54 Total Creatine Kinase 300 H CK-MB (CK-2) 1.0 CK-MB (CK-2) % Cancelled Troponin I 0.03 NT-Pro-B Natriuret Pep 20.4 Total Protein 6.2 Albumin 3.5 Globulin 2.7 Albumin/Globulin Ratio 1.3 Arterial Blood Potassium Venous Blood Potassium Urine Color Urine Appearance Urine pH Ur Specific [place] Urine Protein Urine Glucose (UA) Urine Ketones Urine Blood Urine Nitrate Urine Bilirubin Urine Urobilinogen Ur Leukocyte Esterase Urine RBC Urine WBC Ur Epithelial Cells Urine Bacteria Coarse Granular Casts Urine Opiates Screen Urine Methadone Screen Ur Barbiturates Screen Ur Phencyclidine Scrn Ur Amphetamines Screen U Benzodiazepines Scrn U Oth Cocaine Metabols U Cannabinoids Screen 03/25/18 03/25/18 03/25/18 04:45 05:50 06:44 WBC RBC Hgb Hct MCV MCH MCHC RDW Plt Count MPV Gran % Lymph % (Auto) [place] % (Auto) Eos % (Auto) Baso % (Auto) Gran # Lymph # (Auto) [place] # (Auto) Eos # (Auto) Baso # (Auto) Neutrophils % (Manual) Band Neutrophils % Lymphocytes % (Manual) Monocytes % (Manual) Eosinophils % (Manual) Platelet Evaluation PT INR APTT D-Dimer, Quantitative pCO2 39 pO2 70 H 163.0 H HCO3 23.1 ABG pH 7.38 ABG Total CO2 24.3 ABG O2 Saturation 99.7 H ABG Base Excess -1.8 ABG Potassium 3.1 L VBG pH 7.34 VBG pCO2 50.0 VBG HCO3 27.0 VBG Total CO2 28.5 H VBG O2 Sat (Calc) 96.3 H VBG Base Excess 0.5 VBG Potassium 3.7 Glucose 146 H 90 Lactate 2.6 H 1.4 FiO2 21.0 100.0 Sodium 138.0 139.0 Potassium Chloride 103.0 110.0 H Carbon Dioxide Anion Gap BUN Creatinine Est GFR ( Amer) Est GFR (Non-Af Amer) Random Glucose Calcium Phosphorus Magnesium Total Bilirubin AST ALT Alkaline Phosphatase Total Creatine Kinase CK-MB (CK-2) CK-MB (CK-2) % Troponin I NT-Pro-B Natriuret Pep Total Protein Albumin Globulin Albumin/Globulin Ratio Arterial Blood Potassium 3.1 L Venous Blood Potassium 3.7 Urine Color Yellow Urine Appearance Clear Urine pH 6.0 Ur Specific [place] 1.020 Urine Protein Trace H Urine Glucose (UA) >=1000 Urine Ketones Negative Urine Blood Negative Urine Nitrate Negative Urine Bilirubin Negative Urine Urobilinogen 0.2 Ur Leukocyte Esterase Negative Urine RBC 0 - 2 Urine WBC 1 - 3 Ur Epithelial Cells None Urine Bacteria Mod Coarse Granular Casts Trace H Urine Opiates Screen Urine Methadone Screen Ur Barbiturates Screen Ur Phencyclidine Scrn Ur Amphetamines Screen U Benzodiazepines Scrn U Oth Cocaine Metabols U Cannabinoids Screen 03/25/18 03/25/18 03/25/18 06:44 07:40 07:40 WBC 8.3 D RBC 4.69 Hgb 13.7 L D Hct 40.9 L MCV 87.2 MCH 29.2 MCHC 33.5 RDW 13.5 Plt Count 178 MPV 9.2 Gran % 90.9 H Lymph % (Auto) 6.1 L [place] % (Auto) 2.9 Eos % (Auto) 0.0 L Baso % (Auto) 0.1 Gran # 7.55 H Lymph # (Auto) 0.5 L [place] # (Auto) 0.2 Eos # (Auto) 0.0 Baso # (Auto) 0.01 Neutrophils % (Manual) 86 H Band Neutrophils % 3 H Lymphocytes % (Manual) 7 L Monocytes % (Manual) 3 Eosinophils % (Manual) 1 Platelet Evaluation Normal PT INR APTT D-Dimer, Quantitative pCO2 pO2 HCO3 ABG pH ABG Total CO2 ABG O2 Saturation ABG Base Excess ABG Potassium VBG pH VBG pCO2 VBG HCO3 VBG Total CO2 VBG O2 Sat (Calc) VBG Base Excess VBG Potassium Glucose Lactate FiO2 Sodium 139 Potassium 3.9 Chloride 109 H Carbon Dioxide 25 Anion Gap 9 L BUN 7 Creatinine 1.0 Est GFR ( Amer) > 60 Est GFR (Non-Af Amer) > 60 Random Glucose 88 Calcium 7.2 L Phosphorus 2.3 L Magnesium 1.6 L Total Bilirubin 0.2 AST 33 ALT 41 Alkaline Phosphatase 47 Total Creatine Kinase CK-MB (CK-2) CK-MB (CK-2) % Troponin I NT-Pro-B Natriuret Pep Total Protein 5.2 L Albumin 2.7 L Globulin 2.4 Albumin/Globulin Ratio 1.1 Arterial Blood Potassium Venous Blood Potassium Urine Color Urine Appearance Urine pH Ur Specific [place] Urine Protein Urine Glucose (UA) Urine Ketones Urine Blood Urine Nitrate Urine Bilirubin Urine Urobilinogen Ur Leukocyte Esterase Urine RBC Urine WBC Ur Epithelial Cells Urine Bacteria Coarse Granular Casts Urine Opiates Screen Positive H Urine Methadone Screen Negative Ur Barbiturates Screen Negative Ur Phencyclidine Scrn Negative Ur Amphetamines Screen Negative U Benzodiazepines Scrn Negative U Oth Cocaine Metabols Negative U Cannabinoids Screen Positive H 03/25/18 03/25/18 03/25/18 07:40 09:00 10:30 WBC RBC Hgb Hct MCV MCH MCHC RDW Plt Count MPV Gran % Lymph % (Auto) [place] % (Auto) Eos % (Auto) Baso % (Auto) Gran # Lymph # (Auto) [place] # (Auto) Eos # (Auto) Baso # (Auto) Neutrophils % (Manual) Band Neutrophils % Lymphocytes % (Manual) Monocytes % (Manual) Eosinophils % (Manual) Platelet Evaluation PT INR APTT D-Dimer, Quantitative pCO2 pO2 41 42 HCO3 ABG pH ABG Total CO2 ABG O2 Saturation ABG Base Excess ABG Potassium VBG pH 7.34 7.32 VBG pCO2 46.0 48.0 VBG HCO3 24.8 24.7 VBG Total CO2 26.2 26.2 VBG O2 Sat (Calc) 80.6 H 80.0 H VBG Base Excess -1.3 L -1.8 L VBG Potassium 3.8 4.4 Glucose 87 98 Lactate 1.5 1.7 FiO2 21.0 21.0 Sodium 138.0 137.0 Potassium Chloride 106.0 105.0 Carbon Dioxide Anion Gap BUN Creatinine Est GFR ( Amer) Est GFR (Non-Af Amer) Random Glucose Calcium Phosphorus Magnesium Total Bilirubin AST ALT Alkaline Phosphatase Total Creatine Kinase CK-MB (CK-2) CK-MB (CK-2) % Troponin I 0.20 H* D NT-Pro-B Natriuret Pep Total Protein Albumin Globulin Albumin/Globulin Ratio Arterial Blood Potassium Venous Blood Potassium 3.8 4.4 Urine Color Urine Appearance Urine pH Ur Specific [place] Urine Protein Urine Glucose (UA) Urine Ketones Urine Blood Urine Nitrate Urine Bilirubin Urine Urobilinogen Ur Leukocyte Esterase Urine RBC Urine WBC Ur Epithelial Cells Urine Bacteria Coarse Granular Casts Urine Opiates Screen Urine Methadone Screen Ur Barbiturates Screen Ur Phencyclidine Scrn Ur Amphetamines Screen U Benzodiazepines Scrn U Oth Cocaine Metabols U Cannabinoids Screen 03/25/18 16:50 WBC RBC Hgb Hct MCV MCH MCHC RDW Plt Count MPV Gran % Lymph % (Auto) [place] % (Auto) Eos % (Auto) Baso % (Auto) Gran # Lymph # (Auto) [place] # (Auto) Eos # (Auto) Baso # (Auto) Neutrophils % (Manual) Band Neutrophils % Lymphocytes % (Manual) Monocytes % (Manual) Eosinophils % (Manual) Platelet Evaluation PT INR APTT D-Dimer, Quantitative 582 H pCO2 pO2 HCO3 ABG pH ABG Total CO2 ABG O2 Saturation ABG Base Excess ABG Potassium VBG pH VBG pCO2 VBG HCO3 VBG Total CO2 VBG O2 Sat (Calc) VBG Base Excess VBG Potassium Glucose Lactate FiO2 Sodium Potassium Chloride Carbon Dioxide Anion Gap BUN Creatinine Est GFR ( Amer) Est GFR (Non-Af Amer) Random Glucose Calcium Phosphorus Magnesium Total Bilirubin AST ALT Alkaline Phosphatase Total Creatine Kinase CK-MB (CK-2) CK-MB (CK-2) % Troponin I NT-Pro-B Natriuret Pep Total Protein Albumin Globulin Albumin/Globulin Ratio Arterial Blood Potassium Venous Blood Potassium Urine Color Urine Appearance Urine pH Ur Specific [place] Urine Protein Urine Glucose (UA) Urine Ketones Urine Blood Urine Nitrate Urine Bilirubin Urine Urobilinogen Ur Leukocyte Esterase Urine RBC Urine WBC Ur Epithelial Cells Urine Bacteria Coarse Granular Casts Urine Opiates Screen Urine Methadone Screen Ur Barbiturates Screen Ur Phencyclidine Scrn Ur Amphetamines Screen U Benzodiazepines Scrn U Oth Cocaine Metabols U Cannabinoids Screen EKG/Cardiology Studies: Cardiology / EKG Studies 03/25/18 03:26 EKG [ELECTROCARDIOGRAM] Stat Comment: Reason For Exam: chest pain 03/25/18 15:09 EKG [ELECTROCARDIOGRAM] Stat Comment: Reason For Exam: elevated troponin Critical Care Progress Note - Nutrition Nutrition: Nutrition Category Date Time Status Regular Diet [DIET] Diets 03/25/18 Lunch Ordered Addendum Addendum: 03/25/18 17:20 ICU Attending Addendum Patient seen and examined. Case reviewed on round with housestaff. Agree with resident note above with the following additions/exceptions: 22M found unresponsive after heroin use. CPR was briefly done as EMS did not feel a pulse at the time. With narcan he woke up. Not in resp distress. Was requiring oxygen whihc may have been from CO inhalation as the stove was left on however CXR is not suggestive of inhalation injurt and he was able to come down to 2L of oxygen with 99% sat. He is awake alert and texting on his phone. Stable for transfer to TELE Rest of care as above Chuy Rich MD Pulmonary, Critical Care and Sleep Medicine
[2018-03-25] MEDS ORDERED: Iohexol 350 MG/100 ML VIAL ONE (17:33)
--- NOTE | 2018-03-25 18:33 | CT ---
Date of service: 03/25/2018 PROCEDURE: CT Chest with contrast (Pulmonary Angiogram) HISTORY: r/o PE COMPARISON: None available. TECHNIQUE: Axial computed tomography images were obtained of the chest in the pulmonary arterial phase of enhancement. Coronal and sagittal reformatted images were created and reviewed. Intravenous contrast dose: 100 mL Omnipaque 350 Radiation dose: Total exam DLP = 582.02 mGy-cm. This CT exam was performed using one or more of the following dose reduction techniques: Automated exposure control, adjustment of the mA and/or kV according to patient size, and/or use of iterative reconstruction technique. FINDINGS: PULMONARY ARTERIES: Suboptimal opacification. No gross central pulmonary embolism. AORTA: No acute findings. No thoracic aortic aneurysm. No aortic atherosclerotic calcification or mural plaque present. LUNGS: Extensive alveolar infiltrates predominantly involving the dependent portions of the bilateral upper and lower lobes. No nodule, mass or pulmonary consolidation. PLEURAL SPACES: Unremarkable. No effusion or pneumothorax. HEART: Unremarkable. No cardiomegaly. No significant pericardial effusion. LYMPH NODES: No lymphadenopathy. BONES, CHEST WALL: Unremarkable. No fracture or destructive lesion OTHER FINDINGS: Unremarkable. IMPRESSION: Extensive alveolar infiltrates predominate involving the dependent portions of the bilateral upper and lower lobes. Findings are most consistent with noncardiogenic pulmonary edema. However, a component of aspiration pneumonia cannot be entirely excluded. Suboptimal opacification of the pulmonary arteries. No gross central pulmonary embolism.
[2018-03-25] MEDS ORDERED: Magnesium Sulfate 1 gm in D5W 1 GM/100 ML BAG IVPB ONE (22:36)
[2018-03-26] MEDS: Clindamycin 600mg/50ml D5W 600 MG/50 ML VIAL IVPB SCH (05:08)
[2018-03-26] MEDS ORDERED: levoFLOXacin 750 mg in D5W 750 MG/150 ML BAG IVPB SCH (06:00)
[2018-03-26] MEDS ORDERED: levoFLOXacin 500 mg in D5W 500 MG/100 ML BAG IVPB SCH (06:00)
--- NOTE | 2018-03-26 06:35 | CON ---
DATE: 03/25/2018 REASON FOR CONSULTATION: Heroin overdose. HISTORY OF PRESENT ILLNESS: The patient is a 22 years old male who has no significant past medical history, was admitted because of heroin overdose. The patient was noted by his girlfriend at home to be unresponsive on the floor, apneic, and cyanotic. The girlfriend was alarmed by the kitchen fire alarm as the patient has used the stove, but then apparently became unresponsive after overdosing on heroin. There was no reported seizure activity. The EMS initiated CPR The patient was admitted to he ICU and was transferred to telemetry. The patient himself does not recall the event and denies any prior similar event in the past and denies any prior cardiac history. SOCIAL HISTORY: The patient is a heroin abuser. MEDICATIONS: Aspirin 325 mg once a day, Cleocin 600 mg intravenously every 8 hours, heparin 5000 units subcutaneously every 12 hours, Levaquin 750 mg intravenously daily, Lopressor 12.5 mg twice a day. REVIEW OF SYSTEMS: No fever or chills. No tongue biting or urinary incontinence. PHYSICAL EXAMINATION: GENERAL: The patient is a young male who does not appear to be in any distress. VITAL SIGNS: Blood pressure 121/57, heart rate 124, temperature 98.9, respirations 18. HEENT: Normocephalic. CHEST: Clear. HEART: S1 and S2 regular. EXTREMITIES: No edema. LABORATORY DATA: Troponin 0.2 and 0.19. SMA-7: Sodium 139, potassium 3.9, chloride 109, CO2 of 25, glucose 88, BUN 7, creatinine 1. Hemoglobin and hematocrit today at 15.7 and 40.9, white count 8.3, platelet count 179,000. D-dimer is 582. Urine drug screen is positive for opiates and cannabinoids. EKG revealed sinus tachycardia to a rate 131, rightward axis. A chest CT angio revealed suboptimal opacification of the pulmonary arteries. No gross central pulmonary embolus. Extensive alveolar infiltrate, predominantly involving the dependant portion of the bilateral upper and lower lobe. Findings are most consistent with noncardiogenic pulmonary edema. However, component of aspiration pneumonia cannot be entirely excluded. Head CT scan without contrast normal study. Chest x-ray revealed bilateral alveolar infiltrates, more predominant in the right side. ASSESSMENT: 1. Noncardiogenic pulmonary edema, most likely heroin induced. 2. Cannabinoid abuse. 3. Rule out aspiration pneumonia. RECOMMENDATIONS: Continue currently on aspirin, clindamycin, subcutaneous heparin, IV Levaquin, and Lopressor. Obtain an echocardiographic study. Robbi Solano MD [id number]
[2018-03-26 07:46] VITALS: O2SAT 92
[2018-03-26 07:46] LABS: BASO # 0.02 K/mm3 (0.0-2.0); BASO % 0.3 % (0.0-3.0); EOS # 0.3 (0.0-0.7); EOS % 3.8 % (1.5-5.0); GRAN # 5.43 (1.4-6.5); GRAN % 71.7 % (50.0-68.0); HEMOGLOBIN 13.4 g/dL (14.0-18.0); LYMPH # 1.1 (1.2-3.4); LYMPH % 15.1 % (22.0-35.0); MEAN CELL VOLUME 87.4 fl (80.0-105.0); MEAN CORPUSCULAR HEMOGLOBIN 29.1 pg (25.0-35.0); MEAN CORPUSCULAR HGB CONC 33.3 g/dl (31.0-37.0); MEAN PLATELET VOLUME 9.9 fl (7.0-11.0); MONO # 0.7 (0.1-0.6); MONO % 9.1 % (1.0-6.0); RBC 4.61 10^6/uL (3.5-6.1); RED CELL DISTRIBUTION WIDTH 13.6 % (11.5-14.5); WHITE BLOOD COUNT 7.6 10^3/uL (4.5-11.0)
--- NOTE | 2018-03-26 07:56 | CARD ---
APPROVED REPORT Date of service: 03/25/2018 EKG Measurement Heart [id number] <Conclusion> Sinus tachycardia Otherwise normal ECG
[2018-03-26 08:05] LABS: ALB/GLOB RATIO 1.1 (1.1-1.8); ALT/SGPT 33 U/L (7-56); AST/SGOT 24 U/L (17-59); BLOOD UREA NITROGEN 7 mg/dL (7-21); CALCIUM 8.5 mg/dL (8.4-10.5); GFR NON-AFRICAN AMERICAN > 60
[2018-03-26] MEDS ORDERED: Amoxicillin-Clav 500-125 mg Tab PO SCH (10:00)
--- NOTE | 2018-03-26 10:08 | CP.PCM.PN ---
Subjective - Date & Time of Evaluation Date of Evaluation: 03/26/18 Time of Evaluation: 10:08 Objective - Vital Signs/Intake and Output Vital Signs (last 24 hours): Temp Pulse Resp BP Pulse Ox 98.3 F 109 H 18 131/79 92 L 03/26/18 06:00 03/26/18 09:00 03/26/18 06:00 03/26/18 09:00 03/26/18 06:00 Intake and Output: 03/26/18 03/26/18 06:59 18:59 Intake Total 540 Balance 540 - Medications Medications: Current Medications Albuterol/Ipratropium (Duoneb 3 Mg/0.5 Mg (3 Ml) Ud) 3 ml IH Q2H PRN PRN Reason: Shortness of Breath Amoxicillin/Clavulanate Potassium (Augmentin 500 Mg-125 Mg Tab) 1 tab PO Q12 [facility]; Protocol Aspirin (Aspirin) 325 mg PO DAILY [facility] Last Admin: 03/26/18 08:59 Dose: 325 mg Heparin Sodium (Porcine) (Heparin) 5,000 units SC Q12 [facility]; Protocol Last Admin: 03/26/18 09:00 Dose: 5,000 units Metoprolol Tartrate (Lopressor) 12.5 mg PO BRKDIN MICHAEL Last Admin: 03/26/18 09:00 Dose: 12.5 mg Ondansetron HCl (Zofran Inj) 2 mg IVP Q8 PRN PRN Reason: Nausea/Vomiting - Labs Labs: 03/26/18 07:15 03/26/18 07:15 PT 11.8 SECONDS (9.4-12.5) 03/25/18 03:26 INR 1.03 03/25/18 03:26 APTT 23.8 Seconds (25.1-36.5) L 03/25/18 03:26
[2018-03-26 12:07] VITALS: BP 104/73; PULSE 103; RESP 20; TEMP 98.5
--- NOTE | 2018-03-26 13:19 | CP.PCM.DIS ---
<Aris Krueger - Last Filed: 03/26/18 16:38> Provider - Provider Date of Admission: 03/25/18 04:47 Attending physician: Mark Marina MD Time Spent in preparation of Discharge (in minutes): 40 Hospital Course - Lab Results Lab Results: Micro Results 03/25/18 07:30 Naris MRSA Culture (Admit) - Final MRSA NOT DETECTED 03/25/18 06:44 Urine Urine Culture - Final No Growth (<1,000 CFU/ML) 03/25/18 04:25 Blood-Venous Blood Culture - Preliminary NO GROWTH AFTER 24 HOURS 03/25/18 04:15 Blood-Venous Blood Culture - Preliminary NO GROWTH AFTER 24 HOURS Most Recent Lab Values WBC 7.6 10^3/uL (4.5-11.0) 03/26/18 07:15 RBC 4.61 10^6/uL (3.5-6.1) 03/26/18 07:15 Hgb 13.4 g/dL (14.0-18.0) L 03/26/18 07:15 Hct 40.3 % (42.0-52.0) L 03/26/18 07:15 MCV 87.4 fl (80.0-105.0) 03/26/18 07:15 MCH 29.1 pg (25.0-35.0) 03/26/18 07:15 MCHC 33.3 g/dl (31.0-37.0) 03/26/18 07:15 RDW 13.6 % (11.5-14.5) 03/26/18 07:15 Plt Count 190 10^3/uL (120.0-450.0) 03/26/18 07:15 MPV 9.9 fl (7.0-11.0) 03/26/18 07:15 Gran % 71.7 % (50.0-68.0) H 03/26/18 07:15 Lymph % (Auto) 15.1 % (22.0-35.0) L 03/26/18 07:15 Garvin % (Auto) 9.1 % (1.0-6.0) H 03/26/18 07:15 Eos % (Auto) 3.8 % (1.5-5.0) 03/26/18 07:15 Baso % (Auto) 0.3 % (0.0-3.0) 03/26/18 07:15 Gran # 5.43 (1.4-6.5) 03/26/18 07:15 Lymph # (Auto) 1.1 (1.2-3.4) L 03/26/18 07:15 Garvin # (Auto) 0.7 (0.1-0.6) H 03/26/18 07:15 Eos # (Auto) 0.3 (0.0-0.7) 03/26/18 07:15 Baso # (Auto) 0.02 K/mm3 (0.0-2.0) 03/26/18 07:15 Neutrophils % (Manual) 86 % (50.0-70.0) H 03/25/18 07:40 Band Neutrophils % 3 % (0-2) H 03/25/18 07:40 Lymphocytes % (Manual) 7 % (22.0-35.0) L 03/25/18 07:40 Monocytes % (Manual) 3 % (1.0-6.0) 03/25/18 07:40 Eosinophils % (Manual) 1 % (0.0-3.0) 03/25/18 07:40 Platelet Evaluation Normal (NORMAL) 03/25/18 07:40 PT 11.8 SECONDS (9.4-12.5) 03/25/18 03:26 INR 1.03 03/25/18 03:26 APTT 23.8 Seconds (25.1-36.5) L 03/25/18 03:26 D-Dimer, Quantitative 582 ng/mlDDU (0-243) H 03/25/18 16:50 pCO2 39 mm/Hg (35-45) 03/25/18 05:50 pO2 42 mm/Hg (30-55) 03/25/18 09:00 HCO3 23.1 mmol/L (21-28) 03/25/18 05:50 ABG pH 7.38 (7.35-7.45) 03/25/18 05:50 ABG Total CO2 24.3 mmol.L (22-28) 03/25/18 05:50 ABG O2 Saturation 99.7 % (95-98) H 03/25/18 05:50 ABG Base Excess -1.8 mmol/L (-2.0-3.0) 03/25/18 05:50 ABG Potassium 3.1 mmol/L (3.6-5.2) L 03/25/18 05:50 VBG pH 7.32 (7.32-7.43) 03/25/18 09:00 VBG pCO2 48.0 (40-60) 03/25/18 09:00 VBG HCO3 24.7 mmol/l (21-28) 03/25/18 09:00 VBG Total CO2 26.2 mmol.L (22-28) 03/25/18 09:00 VBG O2 Sat (Calc) 80.0 % (40-65) H 03/25/18 09:00 VBG Base Excess -1.8 mmol/L (0.0-2.0) L 03/25/18 09:00 VBG Potassium 4.4 mmol/L (3.6-5.2) 03/25/18 09:00 Sodium 137.0 mmol/L (132-148) 03/25/18 09:00 Chloride 105.0 mmol/L (98-107) 03/25/18 09:00 Glucose 98 mg/dl (75-110) 03/25/18 09:00 Lactate 1.7 mmol/L (0.7-2.1) 03/25/18 09:00 FiO2 21.0 % 03/25/18 09:00 Sodium 137 mmol/L (132-148) 03/26/18 07:15 Potassium 3.9 mmol/L (3.6-5.0) 03/26/18 07:15 Chloride 109 mmol/L (98-107) H 03/26/18 07:15 Carbon Dioxide 23 mmol/L (21-33) 03/26/18 07:15 Anion Gap 9 (10-20) L 03/26/18 07:15 BUN 7 mg/dL (7-21) 03/26/18 07:15 Creatinine 0.9 mg/dl (0.8-1.5) 03/26/18 07:15 Est GFR ( Amer) > 60 03/26/18 07:15 Est GFR (Non-Af Amer) > 60 03/26/18 07:15 Random Glucose 95 mg/dL (70-110) 03/26/18 07:15 Calcium 8.5 mg/dL (8.4-10.5) 03/26/18 07:15 Phosphorus 2.3 mg/dL (2.5-4.5) L 03/25/18 07:40 Magnesium 1.6 mg/dL (1.7-2.2) L 03/25/18 07:40 Total Bilirubin 0.5 mg/dL (0.2-1.3) 03/26/18 07:15 AST 24 U/L (17-59) 03/26/18 07:15 ALT 33 U/L (7-56) 03/26/18 07:15 Alkaline Phosphatase 51 U/L (38-126) 03/26/18 07:15 Total Creatine Kinase 300 U/L (35-230) H 03/25/18 03:26 CK-MB (CK-2) 1.0 ng/mL (0.0-3.6) 03/25/18 03:26 CK-MB (CK-2) % Cancelled 03/25/18 03:26 Troponin I 0.09 ng/mL D 03/26/18 07:00 NT-Pro-B Natriuret Pep 20.4 pg/mL (0-450) 03/25/18 03:26 Total Protein 5.8 g/dL (5.8-8.3) 03/26/18 07:15 Albumin 3.0 g/dL (3.0-4.8) 03/26/18 07:15 Globulin 2.8 gm/dL 03/26/18 07:15 Albumin/Globulin Ratio 1.1 (1.1-1.8) 03/26/18 07:15 Arterial Blood Potassium 3.1 mmol/L (3.6-5.2) L 03/25/18 05:50 Venous Blood Potassium 4.4 mmol/L (3.6-5.2) 03/25/18 09:00 Urine Color Yellow (YELLOW) 03/25/18 06:44 Urine Appearance Clear (CLEAR) 03/25/18 06:44 Urine pH 6.0 (4.7-8.0) 03/25/18 06:44 Ur Specific [place] 1.020 (1.005-1.035) 03/25/18 06:44 Urine Protein Trace mg/dL (<30 mg/dL) H 03/25/18 06:44 Urine Glucose (UA) >=1000 mg/dL (NEGATIVE) 03/25/18 06:44 Urine Ketones Negative mg/dL (NEGATIVE) 03/25/18 06:44 Urine Blood Negative (NEGATIVE) 03/25/18 06:44 Urine Nitrate Negative (NEGATIVE) 03/25/18 06:44 Urine Bilirubin Negative (NEGATIVE) 03/25/18 06:44 Urine Urobilinogen 0.2 E.U./dL (<1 E.U./dL) 03/25/18 06:44 Ur Leukocyte Esterase Negative Mateo/uL (NEGATIVE) 03/25/18 06:44 Urine RBC 0 - 2 /hpf (0-2) 03/25/18 06:44 Urine WBC 1 - 3 /hpf (0-6) 03/25/18 06:44 Ur Epithelial Cells None /hpf (0-5) 03/25/18 06:44 Urine Bacteria Mod (NEG) 03/25/18 06:44 Coarse Granular Casts Trace /hpf (0-2) H 03/25/18 06:44 Urine Opiates Screen Positive (NEGATIVE) H 03/25/18 06:44 Urine Methadone Screen Negative (NEGATIVE) 03/25/18 06:44 Ur Barbiturates Screen Negative (NEGATIVE) 03/25/18 06:44 Ur Phencyclidine Scrn Negative (NEGATIVE) 03/25/18 06:44 Ur Amphetamines Screen Negative (NEGATIVE) 03/25/18 06:44 U Benzodiazepines Scrn Negative (NEGATIVE) 03/25/18 06:44 U Oth Cocaine Metabols Negative (NEGATIVE) 03/25/18 06:44 U Cannabinoids Screen Positive (NEGATIVE) H 03/25/18 06:44 - Hospital Course Hospital Course: HPI: This is a 22 year old male with no past medical history presenting to ED after heroin overdose status-post chest compressions in the field. Patient states he was at home cooking at approximately 11pm and injected 1.5 bags of heroin into his left arm. He remembers feeling nauseas and vomiting twice before passing out at approximately 12am. Girlfriend, who is present, states she was at home sleeping upstairs and woke up to smoke detector alarms at approximately 2am and went downstairs to find patient unresponsive on his back. She called EMS services and fire department arrived shortly after and performed chest compressions for 3 minutes after which pulses were appreciated. No epinephrine was given. Patient given 2mg of narcan intranasally en route to the ED. He states he tried heroin for the first time on Wednesday and denies use of any other drugs. At this time, he admits to epigastric pain and SOB with deep inspiration. He denies CP, headaches, fevers, chills, nausea, diarrhea, constipation, back pain, urinary complaints, vision/hearing changes, numbness, tingling, swelling, recent travel, sickness and trauma. 12 point review of systems noted here, otherwise unremarkable. In the ED, patient given a total of 3L normal saline and continued to be hypotensive with BP of 86/63 and heart rate in the 110s. He was given 0.4mg of narcan and started on clindamycin and levofloxacin for suspicion of aspiration pneumonia on chest xray while in the ED. Patient was monitored in the ICU for hypotension and concerns for aspiration pneumonia. During the course of admission: Patient denied any acute shortness of breath, chest pain, or palpitations. He was not in any acute respiratory distress. Patient was requiring oxygen which may have been from CO inhalation as his stove was left on; however, Chest xray is not suggestive of inhalation injury and he was able to come down to 2L of oxygen with 99% saturation. Patient was stable for transfer to telemetry floors for further observation. While on the floor, he was switched to Augmentin 500 mg PO BID for concerns of aspiration pneumonia. Cardiology was consulted, recommended continuing patient on antibiotics as well as aspirin, heparin, and lopressor. Echocardiogram study obtained showed no acute abnormal findings, with an ejection fraction of 57%. Patient was kept on the floor for further monitoring and care. However, patient wished to leave hospital against medical advice. He states that he is self- employed and "has bills to pay". This decision was made with informed refusal. The patient was told that remaining in the hospital for further evaluation is necessary. Explanations of the reasons why were discussed. The risks of leaving were explained to the patient and include, but are not limited to, worsening of known or currently unknown conditions, permanent disability, and from undiagnosed or untreated conditions. The patient has the capacity to make this informed decision and understands my explanation of the current medical problem and risks of leaving. The patient voluntarily accepts these risks and signed an AMA form documenting our conversation. The patient was given the opportunity to ask questions and reconsider. The patient was encouraged to return to the ED at any time for further care. He is instructed to take the following medications, as prescribed: Augmentin 500 mg PO twice daily for a total of 4 days Aspirin 81 mg PO daily Please follow up at [facility] within 1 week of discharge for continued care and evaluation: [facility] [address] [place] [address] - Date & Time of H&P Date of H&P: 03/26/18 Time of H&P: 13:06 Discharge Exam - Head Exam Head Exam: ATRAUMATIC, NORMAL INSPECTION, NORMOCEPHALIC - Eye Exam Eye Exam: EOMI, Normal appearance Pupil Exam: NORMAL ACCOMODATION - ENT Exam ENT Exam: Mucous Membranes Moist, Normal Exam - Neck Exam Neck exam: Full Rom, Normal Inspection - Respiratory Exam Respiratory Exam: Clear to PA & Lateral, NORMAL BREATHING PATTERN, UNREMARKABLE. absent: Rales, Rhonchi, Wheezes, Respiratory Distress, Stridor - Cardiovascular Exam Cardiovascular Exam: Tachycardia, +S1, +S2 - GI/Abdominal Exam GI & Abdominal Exam: Normal Bowel Sounds, Soft, Unremarkable. absent: Distended, Firm, Guarding, Rebound, Rigid, Tenderness - Extremities Exam Extremities exam: full ROM, normal capillary refill, normal inspection, pedal pulses present - Back Exam Back exam: NORMAL INSPECTION - Neurological Exam Neurological exam: Alert, Normal Gait, Oriented x3 - Psychiatric Exam Psychiatric exam: Normal Affect, Normal Mood - Skin Skin Exam: Dry, Intact, Normal Color, Warm Discharge Plan - Discharge Medications Prescriptions: RX: Amoxicillin/Clavulanate [Augmentin 500 MG-125 MG Tab] 1 tab PO BID #8 tab RX: Aspirin 325 mg PO DAILY #30 tab - Follow Up Plan Condition: FAIR Disposition: AGAINST MEDICAL ADVICE Additional Instructions: Patient wishes to leave hospital against medical advice. This decision was made with informed refusal. He states that he is self-employed and "has bills to pay". The patient was told that remaining in the hospital for further evaluation is necessary. Explanations of the reasons why were discussed. The risks of leaving were explained to the patient and include, but are not limited to, worsening of known or currently unknown conditions, permanent disability, and from undiagnosed or untreated conditions. The patient has the capacity to make this informed decision and understands my explanation of the current medical problem and risks of leaving. The patient voluntarily accepts these risks and signed an AMA form documenting our conversation. The patient was given the opportunity to ask questions and reconsider. The patient was encouraged to return to the ED at any time for further care. He is instructed to take the following medications, as prescribed: Augmentin 500 mg PO twice daily for a total of 4 days Aspirin 81 mg PO daily Please follow up at [facility] within 1 week of discharge for continued care and evaluation: [facility] [address] [place] [address] Referrals: Clinic,Med Surg [Non-Staff] - <Mark Marina - Last Filed: 03/27/18 13:22> Provider - Provider Date of Admission: 03/25/18 04:47 Attending physician: Mark Marina MD Hospital Course - Lab Results Lab Results: Micro Results 03/25/18 04:25 Blood-Venous Blood Culture - Preliminary NO GROWTH AFTER 48 HOURS 03/25/18 04:15 Blood-Venous Blood Culture - Preliminary NO GROWTH AFTER 48 HOURS 03/25/18 07:30 Naris MRSA Culture (Admit) - Final MRSA NOT DETECTED 03/25/18 06:44 Urine Urine Culture - Final No Growth (<1,000 CFU/ML) Most Recent Lab Values WBC 7.6 10^3/uL (4.5-11.0) 03/26/18 07:15 RBC 4.61 10^6/uL (3.5-6.1) 03/26/18 07:15 Hgb 13.4 g/dL (14.0-18.0) L 03/26/18 07:15 Hct 40.3 % (42.0-52.0) L 03/26/18 07:15 MCV 87.4 fl (80.0-105.0) 03/26/18 07:15 MCH 29.1 pg (25.0-35.0) 03/26/18 07:15 MCHC 33.3 g/dl (31.0-37.0) 03/26/18 07:15 RDW 13.6 % (11.5-14.5) 03/26/18 07:15 Plt Count 190 10^3/uL (120.0-450.0) 03/26/18 07:15 MPV 9.9 fl (7.0-11.0) 03/26/18 07:15 Gran % 71.7 % (50.0-68.0) H 03/26/18 07:15 Lymph % (Auto) 15.1 % (22.0-35.0) L 03/26/18 07:15 Garvin % (Auto) 9.1 % (1.0-6.0) H 03/26/18 07:15 Eos % (Auto) 3.8 % (1.5-5.0) 03/26/18 07:15 Baso % (Auto) 0.3 % (0.0-3.0) 03/26/18 07:15 Gran # 5.43 (1.4-6.5) 03/26/18 07:15 Lymph # (Auto) 1.1 (1.2-3.4) L 03/26/18 07:15 [place]vin # (Auto) 0.7 (0.1-0.6) H 03/26/18 07:15 Eos # (Auto) 0.3 (0.0-0.7) 03/26/18 07:15 Baso # (Auto) 0.02 K/mm3 (0.0-2.0) 03/26/18 07:15 Neutrophils % (Manual) 86 % (50.0-70.0) H 03/25/18 07:40 Band Neutrophils % 3 % (0-2) H 03/25/18 07:40 Lymphocytes % (Manual) 7 % (22.0-35.0) L 03/25/18 07:40 Monocytes % (Manual) 3 % (1.0-6.0) 03/25/18 07:40 Eosinophils % (Manual) 1 % (0.0-3.0) 03/25/18 07:40 Platelet Evaluation Normal (NORMAL) 03/25/18 07:40 PT 11.8 SECONDS (9.4-12.5) 03/25/18 03:26 INR 1.03 03/25/18 03:26 APTT 23.8 Seconds (25.1-36.5) L 03/25/18 03:26 D-Dimer, Quantitative 582 ng/mlDDU (0-243) H 03/25/18 16:50 pCO2 39 mm/Hg (35-45) 03/25/18 05:50 pO2 42 mm/Hg (30-55) 03/25/18 09:00 HCO3 23.1 mmol/L (21-28) 03/25/18 05:50 ABG pH 7.38 (7.35-7.45) 03/25/18 05:50 ABG Total CO2 24.3 mmol.L (22-28) 03/25/18 05:50 ABG O2 Saturation 99.7 % (95-98) H 03/25/18 05:50 ABG Base Excess -1.8 mmol/L (-2.0-3.0) 03/25/18 05:50 ABG Potassium 3.1 mmol/L (3.6-5.2) L 03/25/18 05:50 VBG pH 7.32 (7.32-7.43) 03/25/18 09:00 VBG pCO2 48.0 (40-60) 03/25/18 09:00 VBG HCO3 24.7 mmol/l (21-28) 03/25/18 09:00 VBG Total CO2 26.2 mmol.L (22-28) 03/25/18 09:00 VBG O2 Sat (Calc) 80.0 % (40-65) H 03/25/18 09:00 VBG Base Excess -1.8 mmol/L (0.0-2.0) L 03/25/18 09:00 VBG Potassium 4.4 mmol/L (3.6-5.2) 03/25/18 09:00 Sodium 137.0 mmol/L (132-148) 03/25/18 09:00 Chloride 105.0 mmol/L (98-107) 03/25/18 09:00 Glucose 98 mg/dl (75-110) 03/25/18 09:00 Lactate 1.7 mmol/L (0.7-2.1) 03/25/18 09:00 FiO2 21.0 % 03/25/18 09:00 Sodium 137 mmol/L (132-148) 03/26/18 07:15 Potassium 3.9 mmol/L (3.6-5.0) 03/26/18 07:15 Chloride 109 mmol/L (98-107) H 03/26/18 07:15 Carbon Dioxide 23 mmol/L (21-33) 03/26/18 07:15 Anion Gap 9 (10-20) L 03/26/18 07:15 BUN 7 mg/dL (7-21) 03/26/18 07:15 Creatinine 0.9 mg/dl (0.8-1.5) 03/26/18 07:15 Est GFR ( Amer) > 60 03/26/18 07:15 Est GFR (Non-Af Amer) > 60 03/26/18 07:15 Random Glucose 95 mg/dL (70-110) 03/26/18 07:15 Calcium 8.5 mg/dL (8.4-10.5) 03/26/18 07:15 Phosphorus 2.3 mg/dL (2.5-4.5) L 03/25/18 07:40 Magnesium 1.6 mg/dL (1.7-2.2) L 03/25/18 07:40 Total Bilirubin 0.5 mg/dL (0.2-1.3) 03/26/18 07:15 AST 24 U/L (17-59) 03/26/18 07:15 ALT 33 U/L (7-56) 03/26/18 07:15 Alkaline Phosphatase 51 U/L (38-126) 03/26/18 07:15 Total Creatine Kinase 300 U/L (35-230) H 03/25/18 03:26 CK-MB (CK-2) 1.0 ng/mL (0.0-3.6) 03/25/18 03:26 CK-MB (CK-2) % Cancelled 03/25/18 03:26 Troponin I 0.09 ng/mL D 03/26/18 07:00 NT-Pro-B Natriuret Pep 20.4 pg/mL (0-450) 03/25/18 03:26 Total Protein 5.8 g/dL (5.8-8.3) 03/26/18 07:15 Albumin 3.0 g/dL (3.0-4.8) 03/26/18 07:15 Globulin 2.8 gm/dL 03/26/18 07:15 Albumin/Globulin Ratio 1.1 (1.1-1.8) 03/26/18 07:15 Arterial Blood Potassium 3.1 mmol/L (3.6-5.2) L 03/25/18 05:50 Venous Blood Potassium 4.4 mmol/L (3.6-5.2) 03/25/18 09:00 Urine Color Yellow (YELLOW) 03/25/18 06:44 Urine Appearance Clear (CLEAR) 03/25/18 06:44 Urine pH 6.0 (4.7-8.0) 03/25/18 06:44 Ur Specific [place] 1.020 (1.005-1.035) 03/25/18 06:44 Urine Protein Trace mg/dL (<30 mg/dL) H 03/25/18 06:44 Urine Glucose (UA) >=1000 mg/dL (NEGATIVE) 03/25/18 06:44 Urine Ketones Negative mg/dL (NEGATIVE) 03/25/18 06:44 Urine Blood Negative (NEGATIVE) 03/25/18 06:44 Urine Nitrate Negative (NEGATIVE) 03/25/18 06:44 Urine Bilirubin Negative (NEGATIVE) 03/25/18 06:44 Urine Urobilinogen 0.2 E.U./dL (<1 E.U./dL) 03/25/18 06:44 Ur Leukocyte Esterase Negative Mateo/uL (NEGATIVE) 03/25/18 06:44 Urine RBC 0 - 2 /hpf (0-2) 03/25/18 06:44 Urine WBC 1 - 3 /hpf (0-6) 03/25/18 06:44 Ur Epithelial Cells None /hpf (0-5) 03/25/18 06:44 Urine Bacteria Mod (NEG) 03/25/18 06:44 Coarse Granular Casts Trace /hpf (0-2) H 03/25/18 06:44 Urine Opiates Screen Positive (NEGATIVE) H 03/25/18 06:44 Urine Methadone Screen Negative (NEGATIVE) 03/25/18 06:44 Ur Barbiturates Screen Negative (NEGATIVE) 03/25/18 06:44 Ur Phencyclidine Scrn Negative (NEGATIVE) 03/25/18 06:44 Ur Amphetamines Screen Negative (NEGATIVE) 03/25/18 06:44 U Benzodiazepines Scrn Negative (NEGATIVE) 03/25/18 06:44 U Oth Cocaine Metabols Negative (NEGATIVE) 03/25/18 06:44 U Cannabinoids Screen Positive (NEGATIVE) H 03/25/18 06:44 Attending/Attestation - Attestation I have personally seen and examined this patient.: Yes I have fully participated in the care of the patient.: Yes I have reviewed all pertinent clinical information, including history, physical exam and plan: Yes Notes (Text): 03/27/18 13:20 Medical record note made by the resident after discussion with my direction and input after the patient was personally seen and examined by me. I have reviewed the chart and agree that the record accurately reflects by personal performance of the history, physical exam, data review, and medical decision-making, in the course for the patient. I have also personally directed the plan of care. 22 year old male with no PMH presenting to ED after heroin overdose s/p chest compressions in field CT chest is negative for Pulmonary embolism, likely has non cardiogenic Pulmonary edema due to Narcotic. Patient troponin is elevated, Echo showed normal systolic function EF 57%. Issue of ongoing drug abuse was discussed in detail with him 03/27/18 13:22
--- NOTE | 2018-03-26 14:31 | US ---
HISTORY: Leg pain and swelling. Evaluate for DVT PHYSICIAN(S): Sanjay Rowe MD. TECHNIQUE: Duplex sonography and color-flow Doppler with graded compression were used to evaluate the deep venous systems of both lower extremities. FINDINGS: The visualized deep venous systems of both lower extremities are sonographically normal and compressible. Normal wave forms and augmentation are seen. There is no sonographic evidence for deep venous thrombosis in the visualized segments of both lower extremities. IMPRESSION: No sonographic evidence for deep venous thrombosis in the visualized segments of both lower extremities.
--- NOTE | 2018-03-26 15:21 | PN ---
DATE: SUBJECTIVE: The patient denies any chest pain or shortness of breath. He wants to go home because he has lots of work to do and a job as a rn telephonic. PHYSICAL EXAMINATION: VITAL SIGNS: Blood pressure , heart rate 109, temperature 98.3, respirations 18. HEENT: Normocephalic. CHEST: Clear. HEART: S1 and S2 regular. EXTREMITIES: No edema. LABORATORY DATA: Hemoglobin and hematocrit 15.4 and 40.3. White count and platelet count are within normal limits. Today's SMA-7 is within normal limits, except for chloride of 109 and anion gap of 9. Echocardiographic study revealed normal left ventricular size, normal systolic and diastolic function. Venous Doppler of lower extremity was performed, the report is still pending. ASSESSMENT: 1. Status post heroin and marijuana overdose. 2. Borderline troponin elevation. 3. aspiration pneumonia. RECOMMENDATIONS: Continue aspirin 325 mg once a day, Augmentin 1 tablet every 12 hours, subcutaneous heparin 5000 units every 12 hours, Lopressor 12.5 mg twice a day. I will follow venous Doppler study report. Robbi Solano MD
== END 2018-03-26 13:56 | disposition left against medical advice (07) | DRG 582 ==
LOC: ED 03:11 → ERH 04:47 → CCU 07:18 → 2RSO 15:29
PROVIDERS: ADMIT Internal Medicine; ATTEND Internal Medicine
DX: T40.1X1A Poisoning by heroin, accidental (unintentional), initial encounter (principal); J69.0 Pneumonitis due to inhalation of food and vomit; J68.1 Pulmonary edema due to chemicals, gases, fumes and vapors; F11.10 Opioid abuse, uncomplicated; F12.10 Cannabis abuse, uncomplicated; F17.200 Nicotine dependence, unspecified, uncomplicated